=== PATIENT | female | born 1950 | race Caucasian/White ===

== ENCOUNTER 2016-11-26 18:12 | Emergency (ER) | payer MEDICARE, BC ==
[2016-11-26 18:25] VITALS: BP 175/78
[2016-11-26] MEDS ORDERED: Acetaminophen/HYDROcodone 325-5 MG Tab PO ONE (19:37)
--- NOTE | 2016-11-26 19:40 | EDM.PDOC ---
ED HPI GENERAL MEDICAL PROBLEM - General Chief Complaint: Lower Extremity Injury/Pain Stated Complaint: RT ANKLE INJURY Time Seen by Provider: 11/26/16 19:15 Source of Information: Reports: Patient History Limitations: Reports: No Limitations - History of Present Illness INITIAL COMMENTS - FREE TEXT/NARRATIVE: Patient is a 65-year-old female who presents to the ED complaining of right ankle pain. Patient states she was stepping up onto a ledge when her ankle gave out. She heard a pop with immediate pain. She was able to walk for short period of time on the affected ankle with increasing pain noted. She has some swelling to the lateral aspect of the right ankle with bruising present. Pain is worsened with palpation. Patient denies any pain to the foot, toes, proximal tib /fib, knee, upper leg, or hip. Patient also denies hitting her head and neck/ back pain. She was assisted into the E.D. Right Ankle Pain Score (Numeric/FACES): 5 - Related Data Allergies Allergy/AdvReac Type Severity Reaction Status Date / Time adalimumab [From Humira] Allergy Renal Verified 11/26/16 18:23 Failure hydroxychloroquine Allergy Hives Verified 11/26/16 18:23 [From Plaquenil] Sulfa (Sulfonamide Allergy Hives Verified 11/26/16 18:23 Antibiotics) Home Meds: Home Meds Acetaminophen/HYDROcodone [[place] 325-5 MG] 1 tab PO Q6H PRN #5 tablet 11/26/16 [ Rx] Past Medical History HEENT History: Reports: Impaired Vision Gastrointestinal History: Reports: GERD Musculoskeletal History: Reports: RA Endocrine/Metabolic History: Reports: Other (See Below) Other Endocrine/Metabolic History: fatty liver - Past Surgical History GI Surgical History: Reports: Cholecystectomy Social & Family History - Tobacco Use Smoking Status *Q: Never Smoker Second Hand Smoke Exposure: No - Caffeine Use Caffeine Use: Reports: Coffee - Recreational Drug Use Recreational Drug Use: No Review of Systems - Review of Systems Review Of Systems: ROS reveals no pertinent complaints other than HPI. ED EXAM, GENERAL - Physical Exam Exam: See Below Exam Limited By: No Limitations General Appearance: Alert, WD/WN, Mild Distress Ears: Hearing Grossly Normal Nose: Normal Inspection Throat/Mouth: Normal Voice, No Airway Compromise Neck: Normal Inspection, Supple Respiratory/Chest: No Respiratory Distress, Lungs Clear, Normal Breath Sounds, No Accessory Muscle Use Cardiovascular: Normal Peripheral Pulses, Regular Rate, Rhythm, No Murmur Extremities: Other (Right ankle: Swelling, bruising, noted to lateral aspect of the distal aspect of the ankle. Pain with palpation. No pain noted to the proximal fibula. No pain to the tibia on palpation. No knee pain. No hip pain. ) Neurological: Alert, Oriented, CN II-XII Intact, Normal Cognition, No Motor/ Sensory Deficits Psychiatric: Normal Affect, Normal Mood Skin Exam: Warm, Dry, Intact, Normal Color Course - Vital Signs Last Recorded V/S: Last Vital Signs Temp 97.5 F 11/26/16 18:23 Pulse 87 11/26/16 18:23 Resp 18 11/26/16 18:23 BP 175/78 H 11/26/16 18:23 Pulse Ox 96 11/26/16 18:23 - Orders/Labs/Meds Orders: Active Orders 24 hr Category Date Time Status Ankle Min 3V Rt [CR] Stat Exams 11/26/16 18:43 Taken DME for Discharge [COMM] Stat Oth 11/26/16 19:34 Ordered Meds: Medications Discontinued Medications Generic Name Dose Route Start Last Admin Trade Name Freq PRN Reason Stop Dose Admin Hydrocodone Bitart/Acetaminophen 1 tab 11/26/16 19:37 11/26/16 19:42 [place] 325-5 Mg PO 11/26/16 19:38 1 tab ONETIME ONE Administration - Re-Assessments/Exams Free Text/Narrative Re-Assessment/Exam: X-ray of the right ankle ordered. This revealed a distal fibular fracture with minimal displacement. Reviewed with Dr. Pack. Final interpretation is pending. Will discharge patient home with a walking boot per patient's request. Crutches will be provided. She will see a orthopedic surgeon at her home residence and [facility]. Ordered norco 5-325 1 tab PO. Discharge instructions as documented. 11/26/16 19:37 Departure - Departure Time of Disposition: 19:37 Disposition: Home, Self-Care 01 Condition: Good Clinical Impression: Fracture of fibula Ankle fracture, right Qualifiers: Encounter type: initial encounter Fracture type: closed Qualified Code(s): S82.891A - Other fracture of right lower leg, initial encounter for closed fracture - Discharge Information Prescriptions: Acetaminophen/HYDROcodone [[place] 325-5 MG] 1 tab PO Q6H PRN #5 tablet PRN Reason: Pain (Severe 7-10) Instructions: Fibular Ankle Fracture Treated With or Without Immobilization, Adult Referrals: PCP,Not In Area [Primary Care Provider] - Forms: ED Department Discharge Additional Instructions: You are to be nonweightbearing utilizing crutches to ambulate. Elevate the affected extremity when able to reduce swelling and pain. Apply ice to affected area 4-6 times daily, 20 minutes in duration, do not apply ice directly on the skin. Take Tylenol and ibuprofen in alternating fashion for pain. For severe pain not relieved with the above measures take [place] one tab every 6 hours as needed. Do not take the Tylenol and [place] together. No driving this evening nor while taking the [place] due to sedative side effects. Follow-up with a orthopedic surgeon of your choice in 7 days. Return to ED as needed for any new or worsening symptoms. Walking boot can be taken off to bath. - My Orders Last 24 Hours: My Active Orders 11/26/16 18:43 Ankle Min 3V Rt [CR] Stat 11/26/16 19:34 DME for Discharge [COMM] Stat - Assessment/Plan Last 24 Hours: My Active Orders 11/26/16 18:43 Ankle Min 3V Rt [CR] Stat 11/26/16 19:34 DME for Discharge [COMM] Stat
--- NOTE | 2016-11-27 07:09 | CR ---
Right ankle: Four views of the right ankle were obtained. Comparison: No previous study. Slightly displaced distal fibular fracture is seen. Ankle mortise is symmetric. Diffuse soft tissue swelling is seen. Impression: 1. Minimally displaced distal fibular fracture. 2. Soft tissue swelling. Diagnostic code #3
== END 2016-11-26 20:05 | disposition home or self-care (01) ==
LOC: JD.ED 18:12
DX: S82.831A Other fracture of upper and lower end of right fibula, initial encounter for closed fracture (principal); K21.9 Gastro-esophageal reflux disease without esophagitis; M06.9 Rheumatoid arthritis, unspecified; Z90.49 Acquired absence of other specified parts of digestive tract; Z88.2 Allergy status to sulfonamides; Z88.8 Allergy status to other drugs, medicaments and biological substances; X58.XXXA Exposure to other specified factors, initial encounter
CPT/HCPCS: 73610; 99283; A9270